=== PATIENT | female | born 1965 ===

== ENCOUNTER 2019-09-04 08:31 | Day surgery (SDC) | payer OTHER, SELFPAY ==
[2019-09-03 07:56] VITALS: BMI 51.7
[2019-09-04] MEDS: LACTATED RINGERS 1,000 ML 42 ML IV (09:36)
[2019-09-04] MEDS: GABAPENTIN 300 MG CAPSULE PO (09:36)
[2019-09-04 09:41] VITALS: BP 153/82; PULSE 57; RESP 16; TEMP 36.8; O2SAT 98; BMI 51.7
--- NOTE | 2019-09-04 10:05 | PM.PREOP ---
Pre-operative Note Interval Note History & Physical reviewed/Exam performed by Physician: Yes Changes to H&P: No
--- NOTE | 2019-09-04 10:05 | PM.HP.1 ---
History of Present Illness History of Present Illness Date Patient Seen: 09/04/19 Time Patient Seen: 10:00 Chief complaint: [id number] RIGHT CARPAL TUNNEL SURGERY Narrative: 53-year-old female with numbness to bilateral hands. Mainly affecting the 1st 3 fingers. Patient History Medical History Depression (Acute) Left knee pain (Acute) Low back pain (Acute) Severe anxiety (Acute) Surgical History Hx of tubal ligation (Acute 1993) Family & Social History Social History: household members spouse Tobacco & Substance use: Smoking Status Never smoker alcohol intake former Substance Use Type does not use Meds Home Medications and Allergies Home Medications Medication Instructions Recorded Confirmed Type buspirone 5 - 10 mg PO BID PRN 09/03/19 09/04/19 History citalopram 10 mg PO DAILY 09/03/19 09/04/19 History diazepam 1 tab PO TID 09/03/19 09/04/19 History etodolac 500 mg PO TID PRN 09/03/19 09/04/19 History fluticasone propionate [Flonase 1 - 2 spray INTRANASAL DAILY 09/03/19 09/04/19 History Allergy Relief] methylsulfonylmethane 09/03/19 History tizanidine 4 - 8 mg PO BID PRN 09/03/19 09/04/19 History Allergies Allergy/AdvReac Type Severity Reaction Status Date / Time acetaminophen [From Percocet] Allergy Intermediate Nausea Verified 09/04/19 09:39 diclofenac Allergy Intermediate Redness of Verified 09/04/19 09:39 Skin hydrocodone Allergy Intermediate Nausea Verified 09/04/19 09:39 oxycodone [From Percocet] Allergy Intermediate Nausea Verified 09/04/19 09:39 bupropion Allergy Mild Depression Verified 09/04/19 09:39 Review of Systems Review of Systems ROS: Yes All systems reviewed with the patient and are negative except as otherwise documented Exam Vital Signs (past 8 hours): - 09/04/19 09:41 Temperature 98.3 F Pulse Rate 57 L Respiratory Rate 16 Blood Pressure 153/82 H Pulse Oximetry 98 Oxygen Delivery Method Room Air Narrative Exam Narrative: On physical exam, no swelling or deformities to either hands. Full range of motion to bilateral wrist and fingers. No sign of any thenar atrophy or intrinsic wasting. Decreased sensation in the median nerve distribution. Positive Tinel's, thumb compression, Phalen's test bilaterally. Assessment & Plan Assessment & Plan narrative: Patient with positive physical exam findings as well as EMG. Findings for carpal tunnel bilaterally. Reason patient is interested in surgical treatment. She fully understands the risks and limitations associated with the procedure. All of her questions and concerns were answered to her full satisfaction. The consent form was freely obtained. Time Spent With Patient Time with patient: 15-24 minutes
[2019-09-04] MEDS: CEFAZOLIN 2 GM/100 ML FROZ.PIGGY IV (10:33)
--- NOTE | 2019-09-04 10:49 | SUR.OPER ---
Supine on padded OR bed, head on pillow,right arm secured on padded arm boards at <90 degrees abduction, left arm on arm table under surgeons control, legs uncrossed, safety belt at thigh, tape over blanket over lower legs.
[2019-09-04] MEDS: BUPIVACAINE 0.5% W/ EPI (PF) 10 ML VIAL INJ (10:53)
--- NOTE | 2019-09-04 11:01 | PM.OP.1 ---
Operative Date/Time/Diagnoses Date of procedure: 09/04/19 Time of procedure: 10:30 Pre-op diagnosis: Left carpal tunnel Post-op diagnosis: same Procedure & Clinicians Procedure: Left carpal tunnel release Same procedure as scheduled: Yes Indications: Left carpal tunnel Surgeon: Dayron Fair Click Yes if Unassisted: Yes Anesthesia Type: MAC +/- and Local Operative Notes Findings: Compression of the median nerve at the carpal tunnel Closure Type: primary Specimen(s): none sent Estimated Blood Loss (mL): 0 Tourniquet time (min): 10 Procedure in detail: On date of service, the patient was met in the holding area. Patients operative site was signed and witnessed by the OR staff. The surgery was once again discussed with the patient, and any remaining questions they had were answered fully. Patient was taken back to the operating theater and placed on the operating table in a supine position. Great care was taken to ensure that all bony prominences were carefully padded. A well-padded tourniquet was placed up along the upper extremity. A timeout was performed to verify patient's name, procedure, and operative site. The arm was then prepped and draped in the normal sterile fashion. A 15 blade was used to incise through skin In the center of the palm. Pickups and tenotomy scissors were used to dissect down until the palmar fascia was visualized. The palmar fascia was then sharply incised using a 15 blade. This gave us good visualization of the carpal ligament. A small opening was made into the carpal ligament, and a curved hemostat was placed into that opening. A 15 blade was then used to sharply incise the carpal ligament with the structures beneath being protected by the hemostat. Pickups and Metzenbaum scissors were used to complete the decompression both distally and proximally. This provided a complete decompression of the median nerve. The wound was then irrigated and closed with nylon. The hand was then cleaned, dried, and dressed. Patient was taken to the PACU in stable condition. Complications: none Post-operative Condition: stable Disposition: PACU Plan for aftercare: Patient will follow our postoperative protocol for carpal tunnel release
--- NOTE | 2019-09-04 11:04 | SUR.PHASEII ---
Patient came directly from OR, no sedation given in OR.
[2019-09-04 11:15] VITALS: BP 175/82; PULSE 61; RESP 17; TEMP 36.5; O2SAT 100
== END 2019-09-04 11:20 | disposition home or self-care (01) ==
PROVIDERS: PCP Registered Nurse; Referring Provider Psychiatry & Neurology Neurology; Visit Provider Orthopaedic Surgery
PROC: (CPT 64721; principal; 2019-09-04 10:00)
DX: G56.02 Carpal tunnel syndrome, left upper limb (principal); F41.9 Anxiety disorder, unspecified
CPT/HCPCS: 64721; J0690

== ENCOUNTER → 2021-02-21 10:13 | Outpatient (CLI) | payer OTHER, SELFPAY ==
[2021-02-21 10:24] LABS: Bacteria Urine None Seen; RBC Urine None Seen (0-5/HPF); WBC Urine None Seen (0-5/HPF)
[2021-02-21 10:55] LABS: Add Manual Diff / Slide Review NO; Basophils Absolute Auto 0 /uL (0-100); Basophils Percent Auto 0.4 % (0-2); Eosinophils Absolute Auto 200 /uL (0-450); Eosinophils Percent Auto 2.6 % (2-4); Hemoglobin 13.1 g/dL (12.0-16.0); Lymphocytes Absolute Auto 2400 /uL (1100-4500); Lymphocytes Percent Auto 32.7 % (25-40); Mean Corpuscular HGB Conc 32.7 % (30-36); Mean Corpuscular Hemoglobin 27.1 PG (26-34); Mean Corpuscular Volume 82.8 fL (80-100); Monocytes Absolute Auto 400 /uL (0-900); Monocytes Percent Auto 5.9 % (3-14); Neutrophils Absolute Auto 4200 /uL (1500-7000); Neutrophils Percent Auto 58.4 % (50-75); Platelet Count 170 X10^3/uL (150-400); Red Blood Cell Count 4.83 X10^6/uL (4.0-5.2); Red Cell Distribution Width 15.1 % (11.6-14.8); White Blood Cell Count 7.3 X10^3/uL (4.5-11.0)
[2021-02-21 11:12] LABS: BUN Creatinine Ratio 6.7 (6-22); Blood Urea Nitrogen 3 mg/dL (7-17); Calcium 9.1 mg/dL (8.4-10.2); Carbon Dioxide 30 mmol/L (22-32); Chloride 108 mmol/L (98-107); Estimated Glomerular Filt Rate > 60.0 mL/min (>60); Glucose 92 mg/dL (70-100); HEMOLYSIS < 15 (0-50); Potassium 3.7 mmol/L (3.4-5.1); Sodium 141 mmol/L (137-145)
[2021-02-21 12:48] LABS: Appearance Urine UA CLEAR; Bilirubin Urine UA NEGATIVE (NEGATIVE); Color Urine UA YELLOW; Glucose Urine UA NEGATIVE (Negative); Ketones Urine UA NEGATIVE (NEGATIVE); Leukocyte Esterase Urine UA NEGATIVE (NEGATIVE); Nitrite Urine UA NEGATIVE (Negative); Occult Blood Urine UA NEGATIVE (Negative); Protein Urine UA NEGATIVE (Negative); Specific Gravity Urine UA <=1.005 (1.000-1.035); Urobilinogen Urine UA 0.2 E.U./dL (0.2)
[2021-02-21 12:57] LABS: Culture Indicated Urine Cult Not Indicated; Urine Comments Microscopic Normal
== END ==
PROVIDERS: PCP Registered Nurse; Referring Provider Orthopaedic Surgery; Visit Provider Orthopaedic Surgery
DX: Z01.818 Encounter for other preprocedural examination (principal); Z01.812 Encounter for preprocedural laboratory examination; R73.9 Hyperglycemia, unspecified; N39.0 Urinary tract infection, site not specified
CPT/HCPCS: 36415; 80048; 81001; 83036; 85025; 93005

== ENCOUNTER → 2021-05-16 10:43 | Outpatient (CLI) | payer OTHER, SELFPAY ==
[2021-05-16 14:13] LABS: COVID19 -Nasal RAPID Negative (Negative)
== END ==
PROVIDERS: PCP Registered Nurse; Referring Provider Orthopaedic Surgery; Visit Provider Nurse Practitioner Family
DX: Z20.822 Contact with and (suspected) exposure to COVID-19 (principal)
CPT/HCPCS: 87635

== ENCOUNTER 2021-05-17 06:08 | Day surgery (SDC) | payer OTHER, SELFPAY ==
[2021-05-10 08:13] VITALS: BMI 41.9
[2021-05-17] VITALS (10 sets, daily range): BP systolic 104–139; BP diastolic 46–76; PULSE 51–70; RESP 11–22; TEMP 36.6–36.9; O2SAT 96–100; BMI 41.1
--- NOTE | 2021-05-17 06:00 | DI.RAD.S_ITS ---
PROCEDURE: XR KNEE RT 1TO2V INDICATIONS: postop prosthesis placement TECHNIQUE: 2 views of the knee were acquired. COMPARISON: None. FINDINGS: Bones: Expected post operative alignment of right total knee arthroplasty. The hardware appears intact. No acute fracture seen. Soft tissues: Expected postsurgical sequela IMPRESSION: Expected post operative appearance. Dictated by: Ramon Huang M.D. on 05/17/2021 at 13:57 Approved by: Ramon Huang M.D. on 05/17/2021 at 13:58
[2021-05-17] MEDS: LACTATED RINGERS 1,000 ML 42 ML IV ×2 (07:16→10:34)
[2021-05-17] MEDS: VANCOMYCIN 1,000 MG/200 ML PIGGYBACK 200 MG IV (07:16)
[2021-05-17] MEDS: ACETAMINOPHEN 325 MG TABLET 975 MG PO (07:17)
[2021-05-17] MEDS: PREGABALIN 75 MG CAPSULE PO (07:17)
--- NOTE | 2021-05-17 07:25 | PM.PREOP ---
Pre-operative Note COVID-19 COVID-19 status: Negative Interval Note History & Physical reviewed/Exam performed by Physician: Yes Changes to H&P: No H&P completed within 30 days and has changed as indicated here:: PAR discussed including increased risk for peroneal nerve palsy
--- NOTE | 2021-05-17 07:39 | P.OP_ITS ---
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 Non-operative management has failed and the patient has requested total knee replacement. The risks, benefits and alternatives to surgery were discussed with the patient prior to proceeding. Risks discussed included, but were not limited to, failure to relieve pain, stiffness, infection, nerve damage, deep venous thrombosis, pulmonary embolism, stroke, coma, heart attack, permanent paralysis and , as well as the potential need for eventual revision of the prosthetic. She had a severe flexion contracture and a severe valgus knee about 25? of valgus and a more than 20 degree flexion contracture preoperatively. We had extensive contingency plans including constrained poly is even a hinge just in case it was necessary in order to provider is stable knee. Surgeon: Nayeli Garland Network Operations Technician: Cristina Carreon Anesthesia Type: Spinal Operative Notes Findings: Severe right knee osteoarthritis. Marked destruction of the right knee lateral femoral condyle. Severe flexion contracture and severe valgus alignment. Adequate stability and range of motion achieved with extensive releases in order to regain extension. Fairly extensive work required to balance the knee both in flexion and extension and to restore motion and alignment. Good alignment achieved and good stability in flexion and extension. Closure Type: primary Specimen(s): none sent Prosthetic devices, grafts, tissues, transplants, or devices: Garland Nephew [facility] BCS 2 size 5 femur, size 4 tibia, size 9 poly, 35 x 7.5 mm patella Applied: drain(s) Estimated Blood Loss (mL): 250 Blood products transfused: none Tourniquet time (min): 117 Procedure in detail: The patient was seen in the pre-operative area, where the patient identified the right knee as the operative site and this was marked with my initials. The patient received pre-operative antibiotics, and was taken to the operating room and placed on the operative table in the supine position. After satisfactory anesthesia, a medical recruiter out was performed. The right leg was encircled with a tourniquet about the proximal thigh, and the leg was prepared from the toes to the tourniquet with ChloroPrep in the usual fashion and draped through sterile drapes. The leg was elevated and exsanguinated with Eschmark bandage and the tourniquet inflated to [250] mmHg pressure. The knee was approached through an approximately 24 cm incision centered over the patella and carried into the knee through a medial parapatellar arthrotomy. A portion of the medial and lateral meniscus was resected. She had a severe flexion contracture preoperatively and after fever and after the induction of a general anesthesia she had at least a 20 degree flexion contracture with manipulation I could get her to bend to about 90?. The patella was everted early. I resected multiple bone spurs around the patella. Soft tissue was carefully mobilized around the patella the patella was measured with a caliper. Bone was resected from the patella and the patellar height was reconstituted with up an appropriate sized patellar component. A cover was then placed on the patella. A small amount of additional medial and lateral meniscus was resected. The capsule was meticulously mobilized. A very minimal medial release was performed. Basically stripping only soft tissues from directly along the joint line. Laterally the tissues were meticulously mobilized. I resected some bone spurs off of the lateral femoral condyle and also work specifically in the lateral gutter in the posterolateral gutter in order to allow mobilization of t he patella and the knee and adequate evaluation of the femur. The distal femur was cut at 5?. A [+2] cut was used. It looked like a minimal distal femoral cut and the cut was made without difficulty. Based on her severe preoperative flexion contracture I left the pins in the distal femur in case I really needed to do additional distal femoral resection. An intramedullary guide was used for the tibial cut. Two mm was resected off the least affected medial side. The extension gap was carefully assessed. I did do some additional release in the posterior aspect of the knee both medially and laterally specifically releasing posterior lateral capsule and structures off the posterior lateral tibia in line with the last lateral tibial cut. Despite an adequate appearing distal femoral cut and proximal tibial cut the patient was still clearly too tight. She did not come to full extension and there was 0 extension gap. I specifically worked around the soft tissues in order to provide additional release and it was still clearly too tight. Patient was placed in extension residual medial and lateral meniscus as well as any residual bone was carefully resected. It was felt that she needed 2 mm of additional femur to be resected. It was tight predominantly in extension. This looked like an adequate distal femoral cut and I did not want to resect more proximally due to the position of the medial collateral ligament. I also resected 2 mm of Additional tibia. Hemostasis was achieved especially posteriorly. Additional local was injected into the posterior capsule. The extension gap was assessed and additional releases for gap balancing were performed as necessary. I sized the tibia which was a 4. The femoral gap director of student services in flexion was placed and the alignment and external rotation of the flexion gap was meticulously assessed as well as the rotation of the femoral component for patellar tracking. Finishing cuts were made on the femur for a size 5. The femoral component trial was placed and the notch was finished. The rotation was assessed and the appropriate size femoral guide was placed on the distal femur and finishing cuts were made. There was no evidence of notching. The anterior, posterior and chamfer cuts were then made. The posterior osteophytes and soft tissues were then removed. The posterior capsule was carefully stripped from the posterior aspect of the femur both medially and laterally stripping posterior capsule. Additionally all osteophytes posteriorly were removed. The additional stripping did improve the extension gap. Injected with part of a mixture of 60 ml 0.25% Marcaine mixed with 20 ml Exparel for post operative pain control. The remainder of this mixture was injected into the capsule and subcutaneous tissues during cement curing. The tibial and femoral components were then placed and the knee placed through a range of motion. Range of motion was [0-120], with good stability throughout the range. She was a little tight in extension and we specifically stretch the posterior capsule even farther. The trials were then removed, and the tibia was finished. The bone was prepared with pulsatile lavage, and dried with a sponge. Cement was applied and the final prosthetics placed. Excess cement was removed during and after cement curing. A brief Betadine soak was performed. After confirming there was no extruded cement posteriorly, the final tibial insert was placed. The knee was copiously irrigated and the tourniquet deflated. Hemostasis was obtained with the werewolf system. A drain was placed and brought out superolaterally. The capsule was closed with interrupted nonabsorbable suture. The subcutaneous layer was closed with barbed sutures, and the skin with a running 3-0 V-Lock suture and Surgical glue. An Aquacel Ag dressing was applied and the patient was taken to recovery having tolerated the procedure well. Complications: none Post-operative Condition: stable Disposition: Acute Care Plan for aftercare: The patient will be maintained on a standard total knee replacement protocol with weight bearing as tolerated. The patient will receive aspirin and sequential compression devices for DVT prophylaxis. The patient will be discharged home when safe for the home environment. She had a severe flexion contracture preoperatively. I would like to make sure she gets into physical therapy and begin these immediate range of motion and strengthening exercises. Particularly focusing work in particular on extension stretching. On-table I was able to get her to 0 with flexion to 125.
--- NOTE | 2021-05-17 07:58 | SUR.OPER ---
Supine on padded OR bed. Pillow under head, arms secured on padded armboards <90 degree abduction. Safety belt across torso. Non-operative leg secured with tape over blanket over lower leg. Operative leg secured in DeMayo/Frank/Nathe positioner. Foam padded brace at thigh of operative leg.
[2021-05-17] MEDS: CEFAZOLIN 2 GM/20 ML SYRINGE IV ×2 (08:05→15:32)
[2021-05-17] MEDS: TRANEXAMIC ACID 1,000 MG VIAL 1000 MG INJ ×2 (08:10→10:26)
[2021-05-17] MEDS: BUPIVACAINE LIPOSOME 266 MG/20 ML VIAL INJ (08:30)
[2021-05-17] MEDS: SODIUM CHLORIDE IRRIG SOLUTION 250 ML, POVIDONE-IODINE SPONGE STICKS 1 APPLIC IRR (08:30)
[2021-05-17] MEDS: BUPIVACAINE 0.25% (PF) 60 ML, EPINEPHrine 0.3 MG INJ (08:30)
--- NOTE | 2021-05-17 11:48 | SUR.PHASEI ---
Addendum entered by Lacy Artis R.N. 05/17/21 11:56: 1130-xrays done as ordered in pacu Original Note: Pacu: 1140-Report to floor RN. Meets criteria for transfer to room. xrays done. Wide awake and alert. vss. Denies pain and tolerated ice chips. rt knee hemovac clamped as directed from OR. dressing rt knee clean,dry & intact. Experell band on. csm rt le: 2 + palp dp/pt pulse. moderate/weak dorsi/planter flexion bilaterally from Spinal. able to bend/lift knees bilaterally. refill less than 2 seconds, warm/pink to color. iv converted to saline lock. off monitor for transfer.to room by bed with one clothes bag. 1145-Bedside handoff done in room with Rakel SANCHEZ. one bag of clothes and cell phone with in patients grasp. Tolerated transfer well to room.
[2021-05-17] MEDS: IBUPROFEN 400 MG TABLET PO ×3 (12:55→20:52)
[2021-05-17] MEDS: LACTATED RINGERS 1,000 ML 100 ML IV (12:56)
--- NOTE | 2021-05-17 15:25 | PT.IIE ---
Current Diagnoses Unilateral primary osteoarthritis, right knee (05/17/21) Surgery Performed Operation Date: 05/17/21 07:45 Actual Procedures p Total Knee Arthroplasty(Right) - Nayeli Garland MD Medical History (Last Reviewed 09/04/19 @ 10:06 by Dayron Fair MD) Depression Left knee pain Low back pain Severe anxiety Physical Therapy Inpatient Evaluation/Re-Eval M1 PT/OT-IP Prior Functional Status Start: 05/17/21 16:41 Freq: NEEDED Status: Active Protocol: Document 05/17/21 15:25 AB (Rec: 05/17/21 16:56 AB [id number]) Medical Review Prior Functional Status Medical History Reviewed Yes Communication able to make needs known Mobility and Gait pt stated that she is modified independent with all mobilities using an UP walker or 2 walking sticks for ambulation. pt stated that she has bilateral carpal tunnel issues and unable to use a FWW . Social History Household Members spouse Living Arrangements Apartment/Condo Number of Floors (Floors) One Floor Number of Stairs To Enter/Railing? no steps to enter Home Environment High Toilet,Walk in Shower,Tub /Shower Home Equipment Four Wheel Walker,Shower Seat with Backrest,Hand Held Shower ,Grab Bars Near Toilet,Grab Bars In Shower Additional Social History Comment spouse will be off work for ~ 3 weeks to assist pt has an UP walker, walking sticks M2 PT-IP Current Condition Start: 05/17/21 16:41 Freq: NEEDED Status: Active Protocol: Document 05/17/21 15:25 AB (Rec: 05/17/21 16:56 AB [id number]) Physical Therapy Current Condition Current Condition Evaluation Date 05/17/21 Treatment Diagnosis s/p R TKA; difficulty in walking Onset Date 05/17/21 M3 PT-IP Subjective Start: 05/17/21 16:41 Freq: NEEDED Status: Active Protocol: Document 05/17/21 15:25 AB (Rec: 05/17/21 16:56 AB [id number]) Subjective Physical Therapy Visit Type Type Initial Evaluation Visit Start Time 15:25 Visit Stop Time 16:15 Total Visit Minutes 50 Number of FAVOR MAKER Visits 0 Physical Therapy Visit Comments Patient Comments pt is agreeable to do PT Therapy Pain Assessment Pain When Pain Assessed At Rest Pain Present Pain Present Pain Reported Location Right Knee Intensity 7 Scale Used Numeric (0 - 10) Pain Management Techniques Apply Cold,Distraction, Modification of Treatment,Re- positioning,Timing of Activity with Medications M4 PT-IP Mobility and Gait Start: 05/17/21 16:41 Freq: NEEDED Status: Active Protocol: Document 05/17/21 15:25 AB (Rec: 05/17/21 16:56 AB [email or web address]) PT-Bed Mobility Assessment Supine to Sit Supine to Sit Standby Assistance Sit to Supine Sit to Supine Standby Assistance PT-Transfer Assessment Sit to and From Stand Sit to and from Stand Contact Guard Assistance, Minimal Assistance,1 Person Assistance,Use of Upper Extremities Equipment Transfer Assistive Device Gait Belt,4 Wheeled Walker Orthotic/Prosthetic Devices or Brace: No Comments Mobility Comments pt completed supine to sit SBA . able to sit on EOB SBA. completed sit to stand min A and cues. cued for upright posture and RLE steadiness. completed ambulation using UP walker min A and cues. pt initially drags BLE. cued pt to increase LE elevation and for R quads activation. pt also has increase LLE ER with decrease BALWINDER and cued to correct. pt sat on EOB. educated on ambulation techniques and steadiness. completed sit to stand CGA and ambulated in room using UP walker 35 ft CGA and cues. pt completed sit to supine SBA. positioned in bed. educated on HEP. call light and table placed within reach. Left pt with spouse in room. Gait Assessment Gait Gait Assistance Required: Contact Guard Assist,Minimum Assistance Distance (Feet) 35 Able to Maintain Weight Bearing Status Yes During Gait Assistive Devices Assistive Device Gait Belt,4 Wheeled Walker Orthotic/Prosthetic Devices or Brace: No Gait Deviations General Gait Pattern Antalgic,Decreased Stride Length,Decreased Feet Clearance Factors Limiting Gait Function Factors Limiting Gait Function Decreased Activity Tolerance, Decreased Strength,Limited Range of Motion,Pain,Poor Balance,Poor Safety Awareness PT-Balance Assessment Sitting Balance and Reactions Static Sitting Balance Ability Good Dynamic Sitting Balance Ability Good Standing Balance and Reactions Static Standing Balance Ability Fair Dynamic Standing Balance Ability Fair Device Used UPwalker M5 PT-IP Objective Assessments Start: 05/17/21 16:41 Freq: NEEDED Status: Active Protocol: Document 05/17/21 15:25 AB (Rec: 05/17/21 16:56 AB [email or web address]) Orientation Orientation/Cognition Level of Alertness Alert Orientation Name,Age,Birthday,Month,Date, Year,Day of Week,Place, Situation Language Function Ability No Deficits Noted Safety Awareness Understands Safety Issues Memory Description No Deficits Noted Gross Range of Motion Lower Extremity ROM Assessment Right Impaired Impairments R knee flexion: ~ 80 deg R knee extension: ~ 20 deg less to 0 Strength Lower Extremity Strength Assessment Left Impaired Hip 4/5 Knee 4-/5 Coordination Assessment Gross Coordination Gross Coordination WNL Sensation Assessment Sensation Gross Sensation WNL Muscle Tone Muscle Tone WNL Yes M6 PT-IP Treatment Start: 05/17/21 16:41 Freq: NEEDED Status: Active Protocol: Document 05/17/21 15:25 AB (Rec: 05/17/21 16:56 AB [id number]) Physical Therapy Treatment Exercises Exercises Quad Sets,Heel Slides Education Education Provided Precautions,Weight Bearing Status,Post-Op Packet,Safety M7 PT-IP Assessment and Plan Start: 05/17/21 16:41 Freq: NEEDED Status: Active Protocol: Document 05/17/21 15:25 AB (Rec: 05/17/21 16:56 AB [id number]) PT Summary Assessment and Plan Potential Rehabilitation Potential Good Status of Condition at Evaluation Stable Summary Impairments Pain,ROM,Strength,Balance,Bed Mobility,Transfers,Gait, Activity Tolerance Assessment Summary pt requiring CGA to min A and cues using UP walker. pt s/p R TKA POD 0 and will likely progress during hospital stay. pt is motivated and has spouse to assist her at home. will continue to assess progress. pt is set up for outpt PT. Goals Bed Mobility Goal Independent Transfer Goal Independent,Four Wheeled Walker Gait Goal Independent,Four Wheel Walker Gait Distance 300 Days to Meet Goals 5 Frequency of Treatment Frequency Of Treatment Twice a Day Treatment Plan Physical Therapy Treatment Plan Bed Mobility Training,Transfer Training,Gait Training, Therapeutic Exercise,Balance Retraining,Post Op Education, Discharge Planning,Hot or Cold Pack,Neuromuscular Re-ed, Coordination Retraining,Manual Therapy Weight Bearing Status Weight Bearing Status Weight Bear as Tolerated Allowed Weight Bearing Amount (enter % RLE WBAT or #) (%) Recommendations To Nursing Amount of Assist Needed 1 Person Assist Discharge Recommendations PT Discharge Recommendations Home with Assistance, Outpatient PT Transportation Needs at Discharge Private Vehicle
[2021-05-17] MEDS: ACETAMINOPHEN 325 MG TABLET 650 MG PO ×2 (15:31→20:51)
[2021-05-17] MEDS: TRAMADOL 50 MG TABLET PO (15:32)
[2021-05-17] MEDS: CITALOPRAM 10 MG TABLET PO (20:51)
[2021-05-17] MEDS: ASPIRIN EC 81 MG TABLET PO (20:52)
[2021-05-17] MEDS: DOCUSATE 100 MG CAPSULE PO (20:52)
[2021-05-18] VITALS: BP 100/43; PULSE 62; RESP 16; TEMP 36.8; O2SAT 99
[2021-05-18] MEDS: IBUPROFEN 400 MG TABLET PO ×4 (00:27→13:09)
[2021-05-18] MEDS: CEFAZOLIN 2 GM/20 ML SYRINGE IV (00:27)
[2021-05-18] MEDS: LACTATED RINGERS 1,000 ML 100 ML IV (00:33)
[2021-05-18 04:00] VITALS: BP 118/55; PULSE 64; RESP 16; TEMP 36.6; O2SAT 100
[2021-05-18 06:32] LABS: Hematocrit 32.8 % (36-46); Hemoglobin 10.7 g/dL (12.0-16.0)
[2021-05-18] MEDS: hydrOXYzine pamoate 25 MG CAPSULE PO ×2 (06:40→13:12)
[2021-05-18 08:00] VITALS: BP 122/61; PULSE 62; RESP 16; TEMP 36.2; O2SAT 99
--- NOTE | 2021-05-18 09:21 | CM.DANOTE ---
Case received, EMR reviewed and met with patient. Spouse, Dann, was also at bedside. Introduced self and role. Was able to obtain information from patient regarding her baseline activity status prior to her surgery. DCP assessment completed with information currently available. Patient is a 55 year old female who admitted yesterday morning to the care of the orthopedic team. PCP: Dr. Leo. Payer: confirmed: [employer]. Patient came to the hospital for a surgical procedure. She had right total knee arthroplasty. Patient has history of osteoarthritis. 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 Met with patient in her room. She had just left the restroom using her walker, and sitting up in her chair. Her spouse, Dann, was also in the room. She and her reside in [place]. At her baseline, she has not been driving. She has a wheel chair at home if needed for long distances, has a four wheel walker as well. They both live in a condo which is one level. has taken some time off of work to assist patient when she goes home. Patient also indicated that she has outpatient P.T. set up close to where she lives. She stated. she can get there with her wheel-chair, it's so close. P: DCP to continue to follow. Patient should be able to go home when stable and after cleared by P.T. Kenna Leon RN/Line Maintainer Discharge Planning/Care Management CM Discharge Assessment Start: 05/18/21 09:19 Freq: Status: Active Protocol: Document 05/18/21 09:19 (Rec: 05/18/21 09:21 [id number]) Discharge Planning Assessment Assigned Project Controller Kenna Leon RN/Line Maintainer Advance Directives? No History Provided By Patient,Medical Record Prior Living Arrangements Apartment/Condo Household Members spouse Type of transporation used prior to Relies on Others admit Independent with ADL's Yes Is patient alert and oriented? Yes Needs Assistance With Meal Prep,Home Chores / Shopping Caregiver for Another No DME Already Rented / Owned Wheelchair,FWW / Walker Patient/Family Preference OP PT Therapy Barriers to Discharge No Comment Patient has supportive who has taken some time off of work to assist her. Discharge Plan Home Transportation Arrangement Spouse Referrals Initiated None needed Whiteboard Updated in Patient Room with Yes name and ext. # of Project Controller Review Status In Process Next Review Type Continued Stay Review Pre-Anesthesia Assessment Start: 05/10/21 08:13 Freq: Status: Active Protocol: Document 05/10/21 08:13 KEN (Rec: 05/10/21 09:15 CAB [id number]) Pre-Anesthesia Assessment PAC Comment Computer system difficulties, unable to update in certain areas of patient's chart. Spoke with patient, went over medications and instructions for dos Patient Information Reviewed Via Phone Assessment Assessment Completed With Patient Diagnostic Results BMP/CMP,CBC,EKG,Urinalysis Comment Labs/EKG @ 02/21/21, COVID screen @ 05/16/21 Seen Specialist in Last 12 Months Yes Specialist Seen Orthopedist Primary Language Fijian Baking Powder Mixer Required No Height 5 ft 4.5 in Weight 248 lb Body Mass Index (BMI) 41.9 Barriers to Learning None Hx Anesthesia Reactions No Hx Family Anesthesia Reaction No Hx Malignant Hyperthermia No Hx Blood Transfusion Reaction No Anesthesia Review Requested No alcohol intake former Smoking Status Never smoker Substance Use Type does not use Pain Present Pain Reported Musculoskeletal Symptoms Abnormal Gait,Difficulty Walking,Joint Pain Patient is completely paralyzed or No completely immobile Mental Status Oriented to own ability CPAP/BIPAP use not prescribed Currently Taking a Beta Le No Anti-Coagulant Therapy No Has a Leathersmith No Cardiac Testing No Hx Pacemaker/ICD No Pacemaker Rep Required? No Urinary Catheter Present No Hx Urinary Self Catheterization No Diabetes No HgbA1C 5.0 Date 02/21/21 Patient No Lactating No Presence of External or Internal Medical No Devices Marital Status Lives With spouse Patient Discharge Plan Description Return Home Advance Directives? No
[2021-05-18] MEDS: DOCUSATE 100 MG CAPSULE PO (09:52)
[2021-05-18] MEDS: ASPIRIN EC 81 MG TABLET PO (09:53)
[2021-05-18] MEDS: ACETAMINOPHEN 325 MG TABLET 650 MG PO (09:53)
--- NOTE | 2021-05-18 10:01 | PT.IPTN ---
Current Diagnoses Unilateral primary osteoarthritis, right knee (05/17/21) Surgery Performed Operation Date: 05/17/21 07:45 Actual Procedures p Total Knee Arthroplasty(Right) - Nayeli Garland MD Physical Therapy Treatment Note M2 PT-IP Current Condition Start: 05/17/21 16:41 Freq: NEEDED Status: Active Protocol: Document 05/18/21 09:26 SP (Rec: 05/18/21 13:14 SP [id number]) Physical Therapy Current Condition Current Condition Evaluation Date 05/17/21 Treatment Diagnosis s/p R TKA; difficulty in walking Onset Date 05/17/21 M3 PT-IP Subjective Start: 05/17/21 16:41 Freq: NEEDED Status: Active Protocol: Document 05/18/21 09:26 SP (Rec: 05/18/21 13:14 SP [id number]) Subjective Physical Therapy Visit Type Type Treatment Note Visit Start Time 09:26 Visit Stop Time 10:01 Total Visit Minutes 35 Notes in room, completed caregiver training. Number of TRADING FLOOR OPERATOR Visits 1 Physical Therapy Visit Comments Patient Comments Pt agreeable to working with TRADING FLOOR OPERATOR to prepare to DC. Therapy Pain Assessment Pain When Pain Assessed At Rest Pain Present Pain Present Pain Reported Location Right Knee Intensity 6 Scale Used 6/10 at rest, 7/10 with mobility Description With Movement Pain Behaviors Facial Grimacing Pain Management Techniques Apply Cold,Distraction, Elevation,Re-positioning, Timing of Activity with Medications M4 PT-IP Mobility and Gait Start: 05/17/21 16:41 Freq: NEEDED Status: Active Protocol: Document 05/18/21 09:26 SP (Rec: 05/18/21 13:14 SP [id number]) PT-Bed Mobility Assessment Supine to Sit Supine to Sit Standby Assistance Sit to Supine Sit to Supine Standby Assistance PT-Transfer Assessment Sit to and From Stand Sit to and from Stand Standby Assistance,Contact Guard Assistance,Use of Upper Extremities Equipment Transfer Assistive Device Gait Belt,4 Wheeled Walker Orthotic/Prosthetic Devices or Brace: No Transfers Transfer Destination Bed,Chair Transfer Technique pt ambulated w/ up right walker Transfer Ability Level of Assist Standby Assistance,Contact Guard Assistance,Use of Upper Extremities Comments Mobility Comments Pt seatd in chair when arrived , in room. Completed caregiver training with : donned gait belt, provided assist an cuing as needed throughout tx. Reviewed performance R knee post op seated ex and education on knee with midfoot alignment awareness: AP, R knee flexion seated. locked upright walker due to pt not able to reach brakes in sitting. Sit> stand SBA with proper hand placement from chair. SPT chair > bed w/ upright walker SBA. stand>sit>supine self support of RLE usign BUE. Pt completed post op ex: AP, rest then quad sets with ankle on rolled towel to assist knee extension approx 10 deg, heel slide with use of strap approx 70 deg flexion. Supine>sit sBA. Pt ambulated around room and further distance into hallway, around nursing station and back to chair in room, CG initially then SBA with occasional cuing for tall posture, body closer inside upright walker repositioned seat further away, noted improved decreased flexed trunk during RLE WB. Pt improved R knee/R ankle alignment, flexion and heel to phases with cued as needed for proper form throughout gait. Pt returned to bed when arrived in room. Stand>sit>supine, provided 2 pillows under lower leg for comfort support while allowing R knee extension. Pt is ok to return home with when medically cleared, already set up with outpt therapy. Gait Assessment Gait Gait Assistance Required: Contact Guard Assist,Minimum Assistance Distance (Feet) 230 Able to Maintain Weight Bearing Status Yes During Gait Assistive Devices Assistive Device Gait Belt,4 Wheeled Walker Orthotic/Prosthetic Devices or Brace: No Gait Deviations General Gait Pattern Antalgic,Decreased Stride Length,Decreased Feet Clearance,Flexed Trunk Factors Limiting Gait Function Factors Limiting Gait Function Decreased Activity Tolerance, Decreased Strength,Limited Range of Motion,Pain Comments Gait Comments See mobility comments Stair Climbing Assessment Comments Stair Climbing Comments No stair at home need to assess. PT-Balance Assessment Sitting Balance and Reactions Static Sitting Balance Ability Good Dynamic Sitting Balance Ability Good Standing Balance and Reactions Static Standing Balance Ability Good Dynamic Standing Balance Ability Fair Device Used TruQC M5 PT-IP Objective Assessments Start: 05/17/21 16:41 Freq: NEEDED Status: Active Protocol: Document 05/17/21 15:25 AB (Rec: 05/17/21 16:56 AB [id number]) Orientation Orientation/Cognition Level of Alertness Alert Orientation Name,Age,Birthday,Month,Date, Year,Day of Week,Place, Situation Language Function Ability No Deficits Noted Safety Awareness Understands Safety Issues Memory Description No Deficits Noted Gross Range of Motion Lower Extremity ROM Assessment Right Impaired Impairments R knee flexion: ~ 80 deg R knee extension: ~ 20 deg less to 0 Strength Lower Extremity Strength Assessment Left Impaired Hip 4/5 Knee 4-/5 Coordination Assessment Gross Coordination Gross Coordination WNL Sensation Assessment Sensation Gross Sensation WNL Muscle Tone Muscle Tone WNL Yes M6 PT-IP Treatment Start: 05/17/21 16:41 Freq: NEEDED Status: Active Protocol: Document 05/18/21 09:26 SP (Rec: 05/18/21 13:14 SP [id number]) Physical Therapy Treatment Exercises Exercises Ankle Pumps,Quad Sets,Heel Slides,Passive Knee Extension Hang,Seated Knee Flexion/ Extension Knee ROM Measurement 10-70 deg approx w/ strap assist by pt in supine Education Education Provided Precautions,Weight Bearing Status,Post-Op Packet,Safety Other Treatments Other Treatment Performed Instructed perform ex 3x/day and walk every hour for safety circulation and strengthening . M7 PT-IP Assessment and Plan Start: 05/17/21 16:41 Freq: NEEDED Status: Active Protocol: Document 05/18/21 09:26 SP (Rec: 05/18/21 13:14 SP [id number]) PT Summary Assessment and Plan Potential Rehabilitation Potential Good Status of Condition at Evaluation Stable Summary Impairments Pain,ROM,Strength,Balance,Bed Mobility,Transfers,Gait, Activity Tolerance Progress Towards Goals Progressing Toward Goals,Slow Progress due to Pain,Slow Progress due to Activity Tolerance Assessment Summary Pt mobilizes with CCG> sBA throughout tx using UPwalker. Able to walk further distance 230 ft at [facility] sBA. Pt is ok to return home with to assist her as needed when medically cleared. Goals Bed Mobility Goal Independent Transfer Goal Independent,Four Wheeled Walker Gait Goal Independent,Four Wheel Walker Gait Distance 300 Days to Meet Goals 5 Frequency of Treatment Frequency Of Treatment Twice a Day Treatment Plan Physical Therapy Treatment Plan Bed Mobility Training,Transfer Training,Gait Training, Therapeutic Exercise,Balance Retraining,Post Op Education, Discharge Planning,Hot or Cold Pack,Neuromuscular Re-ed, Coordination Retraining,Manual Therapy Other Recommendations and Next Treatment ROM, LE ex, gait further Focus distance, standing balance activities. Weight Bearing Status Weight Bearing Status Weight Bear as Tolerated Allowed Weight Bearing Amount (enter % RLE WBAT or #) (%) Recommendations To Nursing Amount of Assist Needed Standby Assistance Discharge Recommendations PT Discharge Recommendations Home with Assistance, Outpatient PT Transportation Needs at Discharge Private Vehicle
--- NOTE | 2021-05-18 10:56 | PM.DS.1 ---
History of Present Illness History of Present Illness Date Patient Seen: 05/18/21 Time Patient Seen: 10:56 Chief complaint: Right knee pain Narrative: Pain is mild. Denies fever or chills. No nausea vomiting. Otherwise without complaints. Discharge Providers Provider Discharge Date: 05/18/21 Primary care physician: Mayte Leo, MSN, SUPERINTENDENT O[employer] FIELD DRILLING-BC Consults: 05/17/21 06:00 Consult to Anesthesiology Routine Comment: Consulting Provider: Anesthesiologist Reason for consultation: Regional block for post operative pain control 05/17/21 11:49 Consult to Discharge Planning Routine Comment: Consult to Physical Therapy Evaluate & Treat Comment: Physician Instructions: postop TKA protocol Consult to Respiratory Therapy Evaluate & Treat Comment: Physician Instructions: Evaluate and treat Discharge provider: Evgeny Kinney PA-C Summary Hospital Course Discharge Diagnosis: Severe right knee osteoarthritis with severe valgus deformity Hospital Course: Procedure: right total knee arthroplasty Same procedure as scheduled: Yes Indications: The patient has had progressively worsening right knee pain with radiographic changes consistent with arthritis. Non-operative management has failed and the patient has requested total knee replacement. The risks, benefits and alternatives to surgery were discussed with the patient prior to proceeding. Risks discussed included, but were not limited to, failure to relieve pain, stiffness, infection, nerve damage, deep venous thrombosis, pulmonary embolism, stroke, coma, heart attack, permanent paralysis and , as well as the potential need for eventual revision of the prosthetic.? She had a severe flexion contracture and a severe valgus knee about 25? of valgus and a more than 20 degree flexion contracture preoperatively.? We had extensive contingency plans including constrained poly is even a hinge just in case it was necessary in order to provider is stable knee. Surgeon: Nayeli Garland Shot Blast Equipment Operator: Cristina Carreon Anesthesia Type: Spinal Operative Notes Findings: Severe right knee osteoarthritis.? Marked destruction of the right knee lateral femoral condyle.? Severe flexion contracture and severe valgus alignment.? Adequate stability and range of motion achieved with extensive releases in order to regain extension.? Fairly extensive work required to balance the knee both in flexion and extension and to restore motion and alignment.? Good alignment achieved and good stability in flexion and extension. Closure Type: primary Specimen(s): none sent Prosthetic devices, grafts, tissues, transplants, or devices: Garland Nephew [facility] BCS 2 size 5 femur, size 4 tibia, size 9 poly, 35 x 7.5 mm patella Applied: drain(s) Estimated Blood Loss (mL): 250 Blood products transfused: none Tourniquet time (min): 117 Patient admitted to the hospital for the above-mentioned procedure. Patient consented to the same. Patient taken to the operating room on May 17, 2021. Patient back in her room recovering well as in stable condition. Patient will be discharged home today in stable condition. Exam Vital Signs (past 8 hours): - 05/18/21 04:00 05/18/21 08:00 Temperature 97.9 F 97.2 F L Pulse Rate 64 62 Respiratory Rate 16 16 Blood Pressure 118/55 L 122/61 Pulse Oximetry 100 99 Oxygen Delivery Method Room Air Oxygen Flow Rate 0 Narrative Exam Narrative: Pleasant female resting comfortably in bed in no apparent distress. Dressing is Clean, dry, intact.. Motor functions intact bilateral lower extremities. Sensation grossly intact to light touch bilateral lower extremities. Objective Labs Result Diagrams: 05/18/21 05:40 Labs: Laboratory Results - last 24 hr 05/18/21 05:40 Hgb 10.7 L Hct 32.8 L PFSH Medical History Depression Left knee pain Low back pain Severe anxiety Surgical History History of carpal tunnel surgery of left wrist (09/04/19) Hx of tubal ligation (1993) Social History household members: spouse Smoking Status: Never smoker alcohol intake: former Discharge Assessment & Plan Assessment and Plan Assessment: Patient progressing as expected Plan of Treatment: Discharge home today in stable condition Discharge Plan Discharge Plan Patient Disposition: Home Provider Discharge Comment: Discharge home after physical therapy Discharge orders & Medications Discharge Orders: Discharge (Order); Ordered 05/18/21 Ordered By: Evgeny Kinney Prescriptions: New acetaminophen 325 mg Tablet 650 mg PO TID Qty: 60 0RF aspirin 81 mg Tablet,Delayed Release (Dr/Ec) 81 mg PO BID Qty: 60 0RF tramadol 50 mg Tablet 50 mg PO QID PRN (Reason: Pain, Moderate (4-6)) Qty: 60 0RF ibuprofen 400 mg Tablet 400 mg PO Q4HR Qty: 60 0RF hydroxyzine pamoate 25 mg Capsule 25 mg PO Q6HR PRN (Reason: Nausea) Qty: 30 0RF Continued citalopram 10 mg Tablet 10 mg PO DAILY 0RF buspirone 5 mg Tablet 5 - 10 mg PO BID PRN (Reason: Anxiety) 0RF Follow up/Referrals: Nayeli Garland MD [Physician] - (2 weeks) Mayte Leo, MSN, SUPERINTENDENT [employer] FIELD DRILLING-BC [Primary Care Provider] - Diet/Activity/Treatments Diet: Diet as Tolerated Activity: Weight-bearing as tolerated Cold/Heat Therapy: Apply ice to knee as needed Skin/Wound/Dressing Care Report to your healthcare provider any signs of infection, such as:: chills, fever, increased pain, unusual drainage and unusual redness Dressing: Keep clean and dry Visit Report/Discharge Packet Instructions: DI for Knee Replacement Stand Alone Forms: Surgery Discharge Discharge Data Primary Care Provider: Mayte Leo Attending Provider: Nayeli Garland Quality VTE Deep Vein Thrombosis/Pulmonary Embolism Present on Admission: No
[2021-05-18] MEDS: TRAMADOL 50 MG TABLET PO (11:03)
--- NOTE | 2021-05-18 13:52 | PC.NURSE ---
Pt is A&Ox3 this a.m. reporting pain well controlled with scheduled pain medications, she denies needing or wanting narcotic pain medications. VSS, afebrile on RA. LS CTA, + BS, and reports passing gas. She is voiding without difficulty. Minimal bloody drainage from her hemovac this a.m. 50cc of bloody drainage. Hemovac dc'd per orders. Pt is cleared by ortho and PT to discharge home. After movement with PT she is medicated with tramadol for 8/10 pain with good effect. She is assisted with SBA to the the shower. Dressing C/D/I. She and her verbalize understanding of discharge instructions, activity, incision/dressing care, follow up appointments and sigsn and symptoms of infection or worsening symptoms. She is escorted with all of her belongings via w/ch to private vehicle with her including FWW at 1315 this afternoon.
== END 2021-05-18 13:15 | disposition home or self-care (01) ==
LOC: OR 06:22 → AC 06:22
PROVIDERS: PCP Registered Nurse; Referring Provider Preventive Medicine Occupational Medicine; Visit Provider Orthopaedic Surgery
PROC: 0SRC0JZ Replacement of Right Knee Joint with Synthetic Substitute, Open Approach (ICD-10-PCS; CPT 27447; principal; 2021-05-17 07:45)
DX: M17.11 Unilateral primary osteoarthritis, right knee (principal); M21.061 Valgus deformity, not elsewhere classified, right knee; F32.9 Major depressive disorder, single episode, unspecified; G43.909 Migraine, unspecified, not intractable, without status migrainosus; E66.01 Morbid (severe) obesity due to excess calories; Z68.41 Body mass index [BMI] 40.0-44.9, adult; F41.9 Anxiety disorder, unspecified
CPT/HCPCS: 27447; 36415; 73560; 85014; 85018; 97116; 97161; 97530; C1776; C9290; J0171; J0690; J2250; J2274; J3010